=== PATIENT | male | born 1970 | race Native Hawaiian/Other Pacific Islander ===

== ENCOUNTER 2019-05-04 08:29 | Outpatient (CLI) | payer OTHER | END 2019-05-04 19:38 | disposition home or self-care (01) | LOC: CT 08:29 | DX: R10.32 Left lower quadrant pain (principal) | CPT/HCPCS: Q9963 ==

== ENCOUNTER 2019-05-30 08:46 | Outpatient (CLI) | payer OTHER | END 2019-05-30 19:18 | disposition home or self-care (01) | LOC: RAD 08:46 | DX: M54.16 Radiculopathy, lumbar region (principal) ==

== ENCOUNTER 2021-11-21 10:15 | Outpatient (CLI) | payer OTHER | END 2021-11-21 21:17 | disposition home or self-care (01) | LOC: RAD 10:15 | PROVIDERS: ATTEND Internal Medicine Rheumatology | DX: M06.4 Inflammatory polyarthropathy (principal); M79.641 Pain in right hand; M79.642 Pain in left hand; M79.671 Pain in right foot; M79.672 Pain in left foot ==

== ENCOUNTER 2022-04-25 13:08 | Outpatient (CLI) | payer OTHER | END 2022-04-25 18:53 | disposition home or self-care (01) | LOC: LABW 13:08 | PROVIDERS: ATTEND Physician Assistant | DX: E56.9 Vitamin deficiency, unspecified (principal); M05.79 Rheumatoid arthritis with rheumatoid factor of multiple sites without organ or systems involvement; M06.4 Inflammatory polyarthropathy; R76.0 Raised antibody titer | CPT/HCPCS: 36415; 82306; 84100 ==

== ENCOUNTER 2022-05-21 16:19 | Emergency (ER) | payer OTHER ==
[~2022-05-21] VITALS: Ht 170.2 cm; Wt 97.5 kg
[2022-05-21 16:25] VITALS: BP 164/91; TEMP 99.1
== END 2022-05-21 19:06 | disposition home or self-care (01) ==
LOC: ED 16:19
PROC: 0HQ1XZZ Repair Face Skin, External Approach (ICD-10-PCS; principal; 2022-05-21)
PROC: 09QK0ZZ Repair Nasal Mucosa and Soft Tissue, Open Approach (ICD-10-PCS; 2022-05-21)
DX: S01.81XA Laceration without foreign body of other part of head, initial encounter (principal); S01.21XA Laceration without foreign body of nose, initial encounter; W20.8XXA Other cause of strike by thrown, projected or falling object, initial encounter; Y92.89 Other specified places as the place of occurrence of the external cause
CPT/HCPCS: 80307; 90471; 90715; 99283; J2001

== ENCOUNTER 2022-10-01 12:04 | Outpatient (CLI) | payer OTHER | END 2022-10-01 19:22 | disposition home or self-care (01) | LOC: RAD 12:04 | PROVIDERS: ATTEND Nurse Practitioner Family | DX: M25.511 Pain in right shoulder (principal) ==